=== PATIENT | male | born 1975 | race Caucasian/White ===

== ENCOUNTER → 2022-05-20 19:14 | Outpatient (CLI) | payer BC, OTHER, SELFPAY ==
--- NOTE | 2022-05-20 | DI.RAD.S_ITS ---
PROCEDURE: XR LUMBAR SPINE 2-3V INDICATIONS: Lt Hip Pain TECHNIQUE: 3 views of the lumbar spine were acquired. COMPARISON: None. FINDINGS: Normal lumbar vertebral body height and alignment. No suspicious lytic or blastic osseous lesion. [id number] lower lumbar spine degenerative changes characterized by disc height loss, degenerative osteophytic ridging of the endplates, and facet hypertrophy, most notable at L3-L4 and L4-L5. IMPRESSION: Lower lumbar spine degenerative changes, mild-moderate. No acute finding. Dictated by: Ashwin Hoover M.D. on 05/20/2022 at 19:46 Approved by: Ashwin Hoover M.D. on 05/20/2022 at 19:47
--- NOTE | 2022-05-20 | DI.RAD.S_ITS ---
PROCEDURE: XR HIP W PEL IF DONE LT 2V INDICATIONS: Lt Hip Pain TECHNIQUE: AP pelvis with lateral view(s) of the left hip(s). COMPARISON: None. FINDINGS: Mild joint space narrowing in both hips with small marginal osteophytes. No suspicious lytic or blastic osseous lesion. Sacroiliac joint spaces maintained. No significant soft tissue abnormality. 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 Dictated by: Ashwin Hoover M.D. on 05/20/2022 at 19:47 Approved by: Ashwin Hoover M.D. on 05/20/2022 at 19:48
== END ==
PROVIDERS: PCP Family Medicine; Referring Provider Family Medicine; Visit Provider Family Medicine
DX: M47.816 Spondylosis without myelopathy or radiculopathy, lumbar region (principal); M16.0 Bilateral primary osteoarthritis of hip; M25.552 Pain in left hip
CPT/HCPCS: 72100; 73502